=== PATIENT | female | born 1975 | race Caucasian/White ===

== ENCOUNTER 2017-05-19 12:38 | Emergency (ER) | payer MEDICAID ==
[2017-05-19 14:27] VITALS: BP 103/68
== END 2017-05-19 14:27 | disposition home or self-care (01) ==
LOC: ED 12:38
DX: N39.0 Urinary tract infection, site not specified (principal)

== ENCOUNTER 2018-05-31 09:54 | Emergency (ER) | payer OTHER ==
[~2018-05-31] VITALS: Ht 160 cm; Wt 65.8 kg
[2018-05-31 10:03] VITALS: Ht 160 cm; Wt 65.8 kg
[2018-05-31 11:38] VITALS: BP 102/65
== END 2018-05-31 12:11 | disposition home or self-care (01) ==
LOC: ED 09:54
DX: S56.311A Strain of extensor or abductor muscles, fascia and tendons of right thumb at forearm level, initial encounter (principal); M77.32 Calcaneal spur, left foot; M77.31 Calcaneal spur, right foot; X58.XXXA Exposure to other specified factors, initial encounter; Y93.89 Activity, other specified; Y92.89 Other specified places as the place of occurrence of the external cause; Y99.8 Other external cause status

== ENCOUNTER 2019-02-03 00:29 | Emergency (ER) | payer OTHER ==
[~2019-02-03] VITALS: Ht 160 cm; Wt 69.9 kg
[2019-02-03 00:59] VITALS: Ht 160 cm; Wt 69.9 kg
[2019-02-03 03:20] VITALS: BP 112/68
== END 2019-02-03 03:20 | disposition home or self-care (01) ==
LOC: ED 00:29
DX: M77.9 Enthesopathy, unspecified (principal)

== ENCOUNTER 2019-04-24 20:41 | Emergency (ER) | payer OTHER ==
[~2019-04-24] VITALS: Ht 160 cm; Wt 69.4 kg
[2019-04-24 21:01] VITALS: Ht 160 cm; Wt 69.4 kg
[2019-04-24 22:24] VITALS: BP 113/74
[2019-04-24 23:49] LABS: microscopic required? YES; urine erythrocyte NEGATIVE (NEGATIVE)
== END 2019-04-24 22:24 | disposition home or self-care (01) ==
LOC: ED 20:41
PROVIDERS: Specialist
DX: N39.0 Urinary tract infection, site not specified (principal); Z98.890 Other specified postprocedural states

== ENCOUNTER 2019-08-11 06:53 | Emergency (ER) | payer OTHER ==
[~2019-08-11] VITALS: Ht 160 cm; Wt 68.2 kg
[2019-08-11 06:57] VITALS: Ht 160 cm; Wt 68.2 kg
[2019-08-11 08:12] LABS: BASOPHIL % 0.6 % (0-2); PLATELET COUNT 274 x10^3mcL (130-400); RED CELL DISTRIBUTION WIDTH 13.4 % (11.5-14.5)
[2019-08-11 08:26] LABS: CALCIUM 8.6 mg/dL (8.5-10.1); CARBON DIOXIDE 25.1 mmol/L (21-32); CHLORIDE SERUM 107 mmol/L (98-107); CREATININE SERUM 0.5 mg/dL (0.6-1.0); GFR1 > 60 mL/min; GLUCOSE SERUM 100 mg/dL (74-106); POTASSIUM SERUM 4.2 mmol/L (3.5-5.1); SODIUM SERUM 142 mmol/L (136-145)
[2019-08-11 08:31] LABS: ALBUMIN 3.8 g/dL (3.4-5.0); ALKALINE PHOSPHATASE 59 U/L (46-116); ALT/SGPT 27 U/L (14-59); AST/SGOT 29 U/L (15-37); BILIRUBIN TOTAL 0.32 mg/dL (0.20-1.00); TOTAL PROTEIN, SERUM 7.8 g/dL (6.4-8.2)
[2019-08-11 10:26] VITALS: BP 109/63
== END 2019-08-11 10:26 | disposition home or self-care (01) ==
LOC: ED 06:53
PROVIDERS: Emergency Medicine
DX: B34.9 Viral infection, unspecified (principal)
CPT/HCPCS: 36415; Q0092

== ENCOUNTER 2020-09-07 19:15 | Emergency (ER) | payer OTHER ==
[~2020-09-07] VITALS: Ht 160 cm; Wt 69.9 kg
[2020-09-07 19:31] VITALS: Ht 160 cm; Wt 69.9 kg
[2020-09-07 20:23] VITALS: BP 118/77
== END 2020-09-07 20:23 | disposition home or self-care (01) ==
LOC: ED 19:15
DX: N39.0 Urinary tract infection, site not specified (principal)